=== PATIENT | female | born 1930 | race Hispanic/Latino ===

== ENCOUNTER 2017-08-18 13:57 | Inpatient (IN) | payer MEDICARE ==
[~2017-08-18] VITALS: Ht 152.4 cm; Wt 66.3 kg
--- NOTE | 2017-08-18 16:28 | Diagnostic Imaging Report ---
PROCEDURE:X-RAY CHEST, ONE VIEW COMPARISON:None. INDICATIONS:INFECTED DIALYSIS CATHETER FINDINGS: The heart is enlarged. Aorta is ectatic with calcifications of the aortic arch. Central pulmonary vasculature is prominent. The lungs are diffusely hyperinflated. There is no evidence of mass or infiltrate. There is blunting of the costophrenic angles. No pneumothorax. There are 2 stents in the right axilla and 2 stents in the left upper arm. No focal osseous lesions. CONCLUSION: Cardiomegaly and mild pulmonary vascular congestion. This may be chronic. Blunting of the lateral costophrenic angles is suggestive of pleural effusions. No infiltrates. Diffuse pulmonary hyperinflation suggestive of small airways disease. Dictated by: Jones Rodarte M.D. on 08/18/2017 at 16:29 Electronically approved by: Jones Rodarte M.D. on 08/18/2017 at 16:29
[2017-08-18 18:13] LABS: BASOPHILS % 0.5 % (0.0-1.0); EOSINOPHILS # (AUTO) 0.1 (0.0-0.4); EOSINOPHILS % 1.7 % (0.0-6.0); HEMATOCRIT 35.9 % (34.2-44.1); HEMOGLOBIN 11.9 g/dL (12.0-16.0); LYMPHOCYTES # (AUTO) 0.8 (1.0-3.2); LYMPHOCYTES % 13.8 % (18.0-39.1); MEAN CORPUSCULAR HEMOGLOBIN 33.5 pg (28-32); MEAN CORPUSCULAR HGB CONC 33.1 g/dL (31-35); MEAN CORPUSCULAR VOLUME 101.1 fL (81-99); MONOCYTES # (AUTO) 0.6 (0.2-0.8); MONOCYTES % 9.5 % (4.4-11.3); NEUTROPHILS # (AUTO) 4.4 (2.1-6.9); NEUTROPHILS % 74.2 % (38.7-80.0); PLATELET COUNT 188 x10e3/uL (140-360); RED BLOOD COUNT 3.55 x10e6/uL (3.6-5.1); RED CELL DISTRIBUTION WIDTH 14.4 % (11.7-14.4)
[2017-08-18 18:57] LABS: INR 1.18; PROTHROMBIN TIME 14.1 seconds (11.9-14.5)
[2017-08-18 19:09] LABS: ALBUMIN/GLOBULIN RATIO 1.1 (0.8-2.0); ANION GAP 20.6 mmol/L (8-16); CALCIUM 10.7 mg/dL (8.4-10.2); CREATININE, SERUM 7.49 mg/dL (0.57-1.11); POTASSIUM 4.6 mmol/L (3.5-5.1)
[2017-08-18 19:16] LABS: CREATINE KINASE MB 1.6 ng/mL (0-5.0)
[2017-08-18] MEDS ORDERED: RENVELA0.8 GM PO (19:56)
[2017-08-18] MEDS ORDERED: ZOLOFT50 MG PO (19:56)
[2017-08-18] MEDS ORDERED: GERI-TUSSI100 MG/5 M PO (19:56)
[2017-08-18] MEDS ORDERED: DULCOLAX10 MG PO (19:56)
[2017-08-18] MEDS ORDERED: CARVEDILOL3.125 MG PO (19:56)
[2017-08-18] MEDS ORDERED: PRAVASTATIN SOD20 MG PO (19:56)
[2017-08-18] MEDS ORDERED: IBUPROFEN400 MG PO (19:56)
[2017-08-18] MEDS ORDERED: HYDRALAZINE HCL25 MG PO (19:56)
[2017-08-18] MEDS ORDERED: ASPIR 8181 MG PO (19:56)
[2017-08-18] MEDS ORDERED: RENA-VITE TABL0.8 MG PO (19:56)
[2017-08-18] MEDS ORDERED: PLAVIX75 MG PO (19:56)
[2017-08-18] MEDS: PIPERACILLIN/TAZO 2.25 GM 50 ML IV SCH (21:10)
[2017-08-18] MEDS ORDERED: SODIUM CHLORIDE FLUSH 10 ML SYR INJ PRN (21:15)
[2017-08-18] MEDS ORDERED: VANCOMYCIN 1GM/NS 250 ML 250 ML IV ONE (21:15)
[2017-08-18] MEDS ORDERED: ONDANSETRON HCL INJ 2 MG/ML VIAL IV PRN (21:15)
--- OUTSIDE RECORDS SUMMARY | 2017-08-18 21:31 | XMS REPORT ---
Author [facility] Address Unknown Phone Unavailable Care Team Providers Care Fuel Technician Name Role Phone QUITA LONGORIA Unavailable Unavailable Problems This patient has no known problems. Allergies, Adverse Reactions, Alerts This patient has no known allergies or adverse reactions. Medications This patient has no known medications. Results Test Description Test Time Test Comments Text Results Atomic Results Result Comments CHEST SINGLE (NOT PORTABLE) [place] [address] Patient Name: SETH RUSH MR #: [id number] : 1930 Age/Sex: 87/F Req #: [id number] Adm Physician: Ordered by: SISSY PLEITEZ WIRE DRAWING MACHINE OPERATOR Report #: [id number] Location: ER Room/Bed: Procedure: [id number] DX/CHEST SINGLE (NOT PORTABLE) Exam Date: 08/18/17 Exam Time: 1610 REPORT STATUS: Signed PROCEDURE: X-RAY CHEST, ONE VIEW COMPARISON: None. INDICATIONS: INFECTED DIALYSIS CATHETER FINDINGS: The heart is enlarged. Aorta is ectatic with calcifications of the aortic arch. Central pulmonary vasculature is prominent. The lungs are diffusely hyperinflated. There is no evidence of mass or infiltrate. There is blunting of the costophrenic angles. No pneumothorax. There are 2 stents in the right axilla and 2 stents in the left upper arm. No focal osseous lesions. CONCLUSION: Cardiomegaly and mild pulmonary vascular congestion. This may be chronic. Blunting of the lateral costophrenic angles is suggestive of pleural effusions. No infiltrates. Diffuse pulmonary hyperinflation suggestive of small airways disease. Dictated by: Itz Rodarte M.D. on 2017 at 16:29 Electronically approved by: Itz Rodarte M.D. on 2017 at 16:29 Dictated By: ITZ RODARTE MD [id number] Transcribed By : OMEGA on 08/18/17 1623 COPY TO: SISSY PLEITEZ NP
[2017-08-18 22:29] VITALS: BP 183/75
[2017-08-18] MEDS ORDERED: SODIUM CHLORIDE 0.9% 250ML 250 ML ONE (22:32)
[2017-08-18] MEDS: HYDRALAZINE HCL 20 MG/ML VIAL IV PRN (22:44)
[2017-08-18 23:54] VITALS: BP 183/88
[2017-08-19] VITALS (7 sets, daily range): BP systolic 119–177; BP diastolic 54–94
[2017-08-19] MEDS: HYDRALAZINE HCL 20 MG/ML VIAL IV PRN (04:41)
[2017-08-19 06:21] LABS: BASOPHILS % 0.8 % (0.0-1.0); EOSINOPHILS # (AUTO) 0.1 (0.0-0.4); EOSINOPHILS % 1.7 % (0.0-6.0); HEMATOCRIT 34.3 % (34.2-44.1); HEMOGLOBIN 11.1 g/dL (12.0-16.0); LYMPHOCYTES # (AUTO) 0.9 (1.0-3.2); LYMPHOCYTES % 17.9 % (18.0-39.1); MEAN CORPUSCULAR HEMOGLOBIN 33.3 pg (28-32); MEAN CORPUSCULAR HGB CONC 32.4 g/dL (31-35); MONOCYTES # (AUTO) 0.5 (0.2-0.8); MONOCYTES % 11.2 % (4.4-11.3); NEUTROPHILS # (AUTO) 3.3 (2.1-6.9); NEUTROPHILS % 68.2 % (38.7-80.0); PLATELET COUNT 132 x10e3/uL (140-360); RED BLOOD COUNT 3.33 x10e6/uL (3.6-5.1); RED CELL DISTRIBUTION WIDTH 13.6 % (11.7-14.4)
[2017-08-19 06:42] LABS: ALBUMIN 3.5 g/dL (3.5-5.0); ALBUMIN/GLOBULIN RATIO 1.1 (0.8-2.0); ANION GAP 20.4 mmol/L (8-16); CALCIUM 10.4 mg/dL (8.4-10.2); CREATININE, SERUM 7.95 mg/dL (0.57-1.11); POTASSIUM 5.4 mmol/L (3.5-5.1)
--- NOTE | 2017-08-19 07:43 | History and Physical ---
PRIMARY CARE PHYSICIAN: Unknown CHIEF COMPLAINT: Infected AV fistula. HISTORY OF PRESENT ILLNESS: This is an 87-year-old woman with a history of end-stage renal disease, on hemodialysis, who was sent to the hospital from [facility] yesterday for infected AV fistula. The patient is a poor historian, and unable to provide much history. She denies any chest pain or shortness of breath. White blood cell count here was 5.89. She has been afebrile. PAST MEDICAL HISTORY: Hypertension, end-stage renal disease, on hemodialysis, small-bowel obstruction, status post colostomy placement, constipation, hypertension, anxiety/depression, hyperlipidemia. PAST SURGICAL HISTORY: Colostomy placement, left arm AV fistula. ALLERGIES: PER ELECTRONIC MEDICAL RECORD. FAMILY HISTORY/SOCIAL HISTORY: The patient is a resident at [facility]. No alcohol. Remote history of cigarettes. MEDICATIONS: Per electronic medical records. REVIEW OF SYSTEMS: Denies any dizziness or chest pain. PHYSICAL EXAMINATION VITAL SIGNS: Have been reviewed. GENERAL: A tired-appearing woman resting in bed. HEENT: Anicteric. Pupils respond to light. No oral lesions. CARDIOVASCULAR: Normal S1 and S2. LUNGS: She has moderate breath sounds. ABDOMEN: Soft, nontender and nondistended. She has a left-sided colostomy bag in place with some formed stool. EXTREMITIES: No edema or calf tenderness. She has the left arm with bruit audible. SKIN: Dry. PSYCHIATRIC: Normal affect. NEUROLOGICAL: Alert and oriented times 2. She moves all extremities. LABS: Reviewed. MEDICATIONS: Reviewed. ASSESSMENT AND PLAN: This is an 87-year-old woman with: 1. Presumed infected arteriovenous fistula: We have her on broad-spectrum antibiotics consisting of vancomycin and Zosyn. Blood cultures have been obtained. 2. End-stage renal disease, on hemodialysis: Defer to nephrology. 3. Hypertension: Restart home medications. 4. Anxiety/depression: Restart medication regimen. 5. Hyperlipidemia: Continue statin. 6. Overweight state: Body mass index is 28.5. Obtain lipid panel. 7. Prophylaxis: Will use sequential compression devices and Pepcid. 8. Disposition: Temporary hemodialysis catheter to be placed today. Continue intravenous antibiotics. Infectious disease to assist in management. Job#: [id number] ME
[2017-08-19] MEDS ORDERED: SODIUM CHLORIDE 0.9% 1000ML 1,000 ML ONE (08:19)
[2017-08-19] MEDS ORDERED: IOPAMIDOL 300MG/ML 50ML INFUS..BTL IV ONE (08:19)
[2017-08-19] MEDS ORDERED: LIDOCAINE HCL 2% LOCAL 20 ML VIAL ONE (08:19)
[2017-08-19] MEDS ORDERED: HYDRALAZINE HCL 25 MG TAB PO SCH (09:00)
[2017-08-19] MEDS ORDERED: HEPARIN SOD (PORCINE) 1000 UNIT/ML 30ML ONE (09:12)
[2017-08-19] MEDS ORDERED: SODIUM CHLORIDE 0.9% 250ML 250 ML ONE (10:18)
--- NOTE | 2017-08-19 10:18 | Diagnostic Imaging Report ---
Non-tunneled Dialysis Catheter Placement 08/19/2017 Pre-Procedure Diagnosis: End-Stage Renal Disease; suspected left AV fistula infection. Post-procedure Diagnosis:End-Stage Renal Disease; suspected left AV fistula infection. Right internal jugular occlusion. Battalion Fire Chief: Noelle Banegas Window Unit Air Conditioning Mechanic: None Sedation: None. Heart rate and oxygen saturation were monitored in real-time. Blood pressure was measured in 5 minute increments. 1% lidocaine was used for local anesthesia. Radiation Dose: 22.1 cGycm2 (Dose Area Product) Fluoroscopy time: 0.4 minutes Estimate blood loss: <5 mL Blood administered: None Complications: None Implants/Grafts: 13 Brazilian 15 cm 3 lumen jugular fluoroscopy suite. A timeout was performed, followed by preliminary ultrasound of the right internal jugular vein (see findings below). The right neck and chest were prepped and draped in standard fashion. Using real-time ultrasound guidance a 21 gauge vascular needle was used to access a collateral vein draining adjacent to the normal right internal jugular vein drainage. An image could not be stored in the electronic medical record given device limitations.. A wire was advanced and the needle exchanged for a non-tunneled dialysis catheter using standard Salinger technique. At the end of the procedure the catheter was flushed, secured to the skin and a sterile dressing applied. The patient tolerated the procedure well and without immediate complication. Findings: Occluded right internal jugular vein. Left axillary vein stent. Impression: 1. Successful placement of a non-tunneled dialysis catheter into a right neck collateral vein using ultrasound and fluoroscopic guidance. 2. 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 3. Left-sided access was avoided given left AV fistula conduit. This report was generated with voice-recognition technology. Errors in 3rd grade teacher can occur. Please interpret accordingly and contact a radiologist if there are any questions regarding the report. Signed by: Dr. Lalo Banegas M.D. on 08/19/2017 10:15 AM
[2017-08-19] MEDS: ASPIRIN 81 MG CHEW TAB PO SCH (10:31)
[2017-08-19] MEDS: CARVEDILOL 3.125 MG TAB PO SCH ×2 (10:31→17:00)
[2017-08-19] MEDS: FAMOTIDINE 20 MG TAB PO SCH ×2 (10:31→17:52)
[2017-08-19] MEDS: HYDRALAZINE HCL 100 MG TABLET PO SCH ×3 (10:31→21:38)
[2017-08-19] MEDS: PIPERACILLIN/TAZO 2.25 GM 50 ML IV SCH ×2 (10:31→21:38)
[2017-08-19] MEDS: SERTRALINE HCL 50 MG TAB PO SCH (10:31)
--- NOTE | 2017-08-19 13:12 | Consultation ---
DATE OF CONSULTATION: August 19, 2017 INFECTIOUS DISEASE CONSULTATION ATTENDING PHYSICIAN: Dr. Reece Toure REASON FOR CONSULTATION: Infected AV fistula site. Thank you, Dr. Toure, for asking me to see this patient. HISTORY OF PRESENT ILLNESS: The patient is an 87-year-old woman referred for an infected AV fistula. She is unable to give a detailed history due to dementia. The chart review showed that she was sent to the emergency department from a skilled nursing with hemodialysis access site infection. The patient's district manager primary care sales at the [facility] hemodialysis center had directed that the patient be sent to the emergency department. There was no fever or chills. The patient denies pain at the AV fistula site. At triage, she was noted to have a temperature of 98.3 degrees Fahrenheit, pulse 59, respiratory rate 14, blood pressure 190/84. Laboratory tests showed white blood cell count of 5890 with 74.2% neutrophils. The patient was evaluated by the interventional radiology services and successfully underwent temporary hemodialysis catheter. PAST MEDICAL HISTORY: Hypertension, hyperlipidemia, NSTEMI, end-stage renal disease, dementia, anxiety and depression. PAST SURGICAL HISTORY: Laparotomy with colostomy placement for (?)bowel obstruction, AV fistula creation. ALLERGIES: NO KNOWN DRUG ALLERGIES. MEDICATIONS: See MAR. The current antibiotics are vancomycin 1 g IV piggyback post hemodialysis and Zosyn 2.25 g IV piggyback q.12 h. IMMUNIZATIONS: She received influenza vaccine on May 20, 2017, and pneumococcal vaccine on October 12, 2016. FAMILY HISTORY: Noncontributory. SOCIAL HISTORY: No alcohol or tobacco use. REVIEW OF SYSTEMS: Unable to obtain. PHYSICAL EXAMINATION GENERAL: In no acute distress and does not appear toxic. VITAL SIGNS: T-max 98.9, pulse 62, respiratory rate 18, blood pressure 148/56, weight 146 pounds. HEENT: Normocephalic. There is no icterus or injection of conjunctivae. There is no ear or nasal discharge. Moist oral mucosa. No pharyngeal erythema or exudate. NECK: Supple. No lymphadenopathy. LUNGS: Good air entry bilaterally. HEART: Normal S1 and S2. Regular. ABDOMEN: Soft and nontender. EXTREMITIES: There is no edema, clubbing or cyanosis. The left arm AV fistula site is with black scab at the puncture site. There is mild erythema of the site, but there is no tenderness. SKIN: As per extremities. DIRECTOR PRINT: Awake and alert but with moderate memory loss. LABORATORY AND DIAGNOSTICS: WBC 4810, hemoglobin 11.1, platelets 132,000, neutrophils 68.2, lymphocytes 17.9, monos 11.2, eosinophils 1.7, basophils 0.8. AST 27, ALT 21, alk phos 92, total bilirubin 0.8. Blood culture is pending. IMPRESSION 1. Probable cellulitis of the arteriovenous fistula site, present on admission. 2. End-stage renal disease. 3. Hypertension. 4. Hyperlipidemia. 5. Dementia. PLAN 1. Await blood culture result. 2. Stop Zoan. Job#: [id number] KAREN FABIAN
[2017-08-19] MEDS ORDERED: SODIUM CHLORIDE 0.9% 1000ML 2,000 ML ONE (14:39)
[2017-08-19] MEDS: VANCOMYCIN 1GM/NS 250 ML 250 ML IV SCH (17:52)
--- NOTE | 2017-08-19 18:12 | Consultation ---
DATE OF CONSULTATION: August 19, 2017 NEPHROLOGY CONSULTATION REASON FOR CONSULTATION: End-stage renal disease on hemodialysis. REASON FOR ADMISSION: Possible AV fistula line infection. HISTORY OF PRESENT ILLNESS: Ms. Ness is an 87-year-old lady who is my dialysis patient at [facility]. She has a history of end-stage renal disease on hemodialysis Wednesday, Wednesday, Wednesday. She has hypertension, anemia, metabolic bone disease, hyperlipidemia, small bowel obstruction, status post colostomy and chronic hyperkalemia who was admitted. She initially presented to the dialysis unit yesterday. However, she was noted to have erythema and pus draining out of the fistula, and, hence, was sent to the emergency room here. Here she was noted to have erythema on the fistula. IR has been consulted and placed a temporary non-tunneled dialysis catheter, which is currently being used for dialysis today. The patient denies any pain. She states she feels fine and she wants to go home. Denies any nausea, vomiting, shortness of breath. ID has been consulted and thinks that this could be superficial cellulitis. However, awaiting blood cultures and currently the patient is on Zosyn. PAST MEDICAL HISTORY: Hypertension, end-stage renal disease on hemodialysis on Wednesday, Wednesday, Wednesday, small bowel obstruction, status post colostomy, constipation, hypertension, anemia, metabolic bone disease, anxiety, depression, hyperlipidemia. PAST SURGICAL HISTORY: Colostomy placement and left AV fistula. ALLERGIES: PER ELECTRONIC MEDICAL RECORD. MEDICATIONS: Reviewed in electronic medical record. FAMILY HISTORY: Not pertinent to chief complaint. Lives in a long-term. SOCIAL HISTORY: No alcohol or drug use. Was a former smoker. REVIEW OF SYSTEMS: A 12-point review of systems was performed and pertinent positives as per HPI. PHYSICAL EXAMINATION VITAL SIGNS: Temperature 98.3, pulse rate 55 per minute, respiratory rate 18 per minute, blood pressure 119/54, pulse oximetry 96% on O2. GENERAL: Lying in bed and appears to be comfortable. HEENT: Normocephalic, atraumatic. Moist mucous membranes. RESPIRATORY: Decreased bilateral basilar breath sounds, has crackles scattered in the right lung base. CARDIOVASCULAR: Regular rate and rhythm. GASTROINTESTINAL: Abdomen is soft. Colostomy is present. GENITOURINARY: No Barcenas catheter present. MUSCULOSKELETAL: Has left upper AV fistula with erythema and a scab noted as well. Thrill and bruit present. Lower extremities with no edema appreciated. NEUROLOGIC: No asterixis appreciated. LABORATORY DATA: WBC count 4.8, hemoglobin 11.1, platelet count 132,000, INR 1.18. Chemistries: Sodium 140, potassium 5.4, chloride 102, bicarb 23, BUN 56, creatinine 7.95, calcium 10.4, was 10.7 on admission. AST 27, ALT 21. CK 28. BNP on admission 1535. Albumin 3.5. Microbiology: Blood culture x2 pending. IMAGING: Chest x-ray: Cardiomegaly and mild pulmonary vascular congestion. 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 IMPRESSION AND PLAN 1. End-stage renal disease on hemodialysis. Will plan for dialysis through non-tunneled temporary hemodialysis catheter at this time. Will await infectious disease clearance for using the fistula, currently on Zosyn. 2. Infected AV fistula, possible cellulitis, superficial. Await blood cultures on Zosyn and antibiotics per infectious disease. 3. Hypertension. Continue with current meds. 4. Metabolic bone disease. Start PhosLo with meals. 5. Anemia. Hemoglobin stable. 6. Hypercalcemia. Will monitor closely. 7. Will assess the colostomy with colostomy care. 8. Plan is discussed with RN. Job#: [id number]
--- NOTE | 2017-08-19 20:46 | Diagnostic Imaging Report ---
Pelvis CPT code: 73320 Indication: Right leg pain, fall several days ago Technique: AP view of the pelvis obtained Findings: The bones are diffusely demineralized. The majority of the right femoral head is absent. There is superior migration of the femoral neck in the acetabulum with resulting sclerosis and joint space narrowing. No acute fractures. Left femur is intact and normally situated. There are extensive calcifications of the arterial structures. No pelvic fractures. IMPRESSION: Complete erosion of the right femoral head with resulting degenerative changes of the hip. This could be the result of avascular necrosis. No acute fracture or dislocation. Signed by: Dr. Jones Rodarte MD on 08/19/2017 8:42 PM
--- NOTE | 2017-08-19 20:47 | Diagnostic Imaging Report ---
Femur right CPT code: 22422 Indication: Pain, fall Technique: AP and lateral views of right femur obtained Comparison: Pelvis x-rays obtained at the same time Findings: The right femoral head is absent. There is sclerosis and joint space narrowing of the femoral neck and adjacent acetabulum. The remainder of the femur is intact. There are mild degenerative changes of the knee. The patella is normally situated without joint effusion. Visualized portion of the proximal tibia and fibula are intact. Extensive calcifications throughout the vascular structures. IMPRESSION: 1. No acute fracture or dislocation. 2. Erosion or collapse of the right femoral head could be the result of avascular necrosis. Signed by: Dr. Jones Rodarte MD on 08/19/2017 8:44 PM
--- NOTE | 2017-08-19 20:50 | Diagnostic Imaging Report ---
Cervical Spine Two Views CPT code: 43496 Indication: Fall Technique: AP and lateral views of cervical spine obtained. Comparison: None Findings: Cervical vertebral bodies can be visualized to C7. There is anterolisthesis of C4 on C5 of approximately 3 mm. No prevertebral soft tissue swelling. Disc space narrowing and endplate osteophytosis most severe at C5-6. The facets and spinous processes are normally aligned. Alignment is maintained on the AP view. The lateral masses of C1 are symmetric. The dens is intact. The skull base is normal. Central venous catheter is located in the upper right chest. There is a vascular stent in the left axilla. IMPRESSION: No acute fracture or dislocation. Grade 1 anterolisthesis of C3 on C4 is likely degenerative. Signed by: Dr. Jones Rodarte MD on 08/19/2017 8:47 PM
[2017-08-19] MEDS ORDERED: NON-FORMULARY MEDICATION (Pravastatin Sodium 20 MG) PO SCH (21:00)
[2017-08-19] MEDS: CALCIUM ACETATE 667 MG GELCAP PO SCH (21:37)
[2017-08-19] MEDS: SIMVASTATIN 20 MG TAB PO SCH (21:38)
[2017-08-20] VITALS: BP 160/74
[2017-08-20] MEDS: HYDRALAZINE HCL 20 MG/ML VIAL IV PRN ×2 (00:26→05:18)
[2017-08-20 04:00] VITALS: BP 185/75
[2017-08-20 05:00] VITALS: BP 160/74
--- NOTE | 2017-08-20 06:37 | Progress Note ---
DATE: August 20, 2017 TIME: 6 a.m. OVERNIGHT: Feeling a little better. REVIEW OF SYSTEMS: Denies any dizziness. PHYSICAL EXAMINATION VITAL SIGNS: Reviewed. GENERAL: A tired-appearing woman resting in bed. HEENT: Anicteric. CARDIOVASCULAR: Normal S1 and S2. LUNGS: Moderate breath sounds. ABDOMEN: Soft, nontender and nondistended. She has a left-sided colostomy in place. EXTREMITIES: She has no edema or calf tenderness. She has a left arm bruit at the HD site. That site does not appear to be infectious. There is some skin changes. The site is nontender. SKIN: Dry. PSYCHIATRIC: Flat affect. NEUROLOGICAL: Alert, awake and appropriate. LABS: Reviewed. MEDICATIONS: Reviewed. ASSESSMENT: An 87-year-old woman with: 1. Presumed infected arteriovenous fistula. 2. End-stage renal disease, on hemodialysis. 3. Hypertension. 4. Anxiety/depression. 5. Hyperlipidemia. 6. Overweight state: Body mass index 28.6. 7. Right femoral head collapse/erosion, but no fracture. PLAN 1. Continue IV antibiotics. 2. Follow up cultures. 3. Temporary HD catheter has been placed in the right chest site. Possible dialysis today. 4. Rehydrate the patient for better blood pressure control. 5. Right femoral head collapse is seen on imaging with erosion, but no fracture. 6. Continue monitoring blood pressure. 7. The patient remains on IV vancomycin at dialysis and IV Zosyn. 8. Currently, blood pressure is elevated. Will adjust medications and treat as appropriate. Job#: [id number] LYUDMILA
[2017-08-20 07:28] LABS: ANION GAP 17.3 mmol/L (8-16); CALCIUM 9.5 mg/dL (8.4-10.2); CREATININE, SERUM 4.33 mg/dL (0.57-1.11); MAGNESIUM 1.8 MG/DL (1.3-2.1); PHOSPHORUS 3.5 MG/DL (2.3-4.7); POTASSIUM 4.3 mmol/L (3.5-5.1)
[2017-08-20] MEDS: CALCIUM ACETATE 667 MG GELCAP PO SCH ×3 (08:00→16:38)
[2017-08-20] MEDS: HYDRALAZINE HCL 100 MG TABLET PO SCH ×3 (09:00→20:44)
[2017-08-20] MEDS: CARVEDILOL 3.125 MG TAB PO SCH ×2 (09:00→16:38)
[2017-08-20] MEDS: ASPIRIN 81 MG CHEW TAB PO SCH (09:09)
[2017-08-20] MEDS: SERTRALINE HCL 50 MG TAB PO SCH (09:09)
[2017-08-20] MEDS: FAMOTIDINE 20 MG TAB PO SCH ×2 (09:09→16:38)
[2017-08-20] MEDS ORDERED: SODIUM CHLORIDE 0.9% 1000ML 1,000 ML ONE (09:13)
[2017-08-20 10:15] VITALS: BP 161/56
[2017-08-20] MEDS ORDERED: SODIUM CHLORIDE 0.9% 250ML 500 ML IV PRN (10:15)
[2017-08-20] MEDS ORDERED: HEPARIN SOD (PORCINE) 1000 UNIT/ML SDV IV PRN (10:15)
[2017-08-20] MEDS ORDERED: ALBUMIN HUMAN 12.5GM / 50ML IV PRN (10:15)
[2017-08-20] MEDS ORDERED: SODIUM CHLORIDE 0.9% 1000ML 2,000 ML IV PRN (10:15)
[2017-08-20] MEDS ORDERED: MANNITOL 25% 12.5GM/50 ML VIAL IV PRN (10:15)
[2017-08-20] MEDS: PIPERACILLIN/TAZO 2.25 GM 50 ML IV SCH ×2 (12:41→20:44)
[2017-08-20] MEDS: AMLODIPINE BESYLATE 5 MG TAB PO SCH (12:41)
[2017-08-20] MEDS: ACETAMINOPHEN 325 MG TAB PO PRN (16:38)
[2017-08-20 16:48] VITALS: BP 155/70
[2017-08-20 20:00] VITALS: BP 162/70
[2017-08-20] MEDS: SIMVASTATIN 20 MG TAB PO SCH (20:44)
[2017-08-20] MEDS: BALSAM PERU/CASTOR OIL 60 GM OINT...G. TP SCH (21:00)
[2017-08-21] VITALS: BP 159/86
[2017-08-21 02:17] VITALS: BP 155/70
[2017-08-21 04:00] VITALS: BP 187/72
[2017-08-21] MEDS: HYDRALAZINE HCL 20 MG/ML VIAL IV PRN (05:26)
[2017-08-21] MEDS: FAMOTIDINE 20 MG TAB PO SCH ×2 (08:15→17:06)
[2017-08-21] MEDS: PIPERACILLIN/TAZO 2.25 GM 50 ML IV SCH ×2 (08:16→21:10)
[2017-08-21] MEDS: HYDRALAZINE HCL 100 MG TABLET PO SCH ×3 (08:16→21:10)
[2017-08-21] MEDS: CARVEDILOL 3.125 MG TAB PO SCH ×2 (08:16→16:56)
[2017-08-21] MEDS: AMLODIPINE BESYLATE 5 MG TAB PO SCH ×2 (08:16→16:57)
[2017-08-21] MEDS: ASPIRIN 81 MG CHEW TAB PO SCH (08:16)
[2017-08-21] MEDS: CALCIUM ACETATE 667 MG GELCAP PO SCH ×3 (08:16→17:06)
[2017-08-21] MEDS: BALSAM PERU/CASTOR OIL 60 GM OINT...G. TP SCH ×2 (08:16→21:10)
[2017-08-21] MEDS: SERTRALINE HCL 50 MG TAB PO SCH (08:16)
[2017-08-21] MEDS: VANCOMYCIN 1GM/NS 250 ML 250 ML IV SCH (09:09)
--- NOTE | 2017-08-21 16:40 | Progress Note ---
DATE: August 21, 2017 TIME: 1445 MEDICINE PROGRESS NOTE SUBJECTIVE: No acute events overnight. REVIEW OF SYSTEMS: Patient denies any chest pain, shortness of breath, nausea, vomiting, or diarrhea. PHYSICAL EXAMINATION VITAL SIGNS: This a.m., T 96.7, P 56, respirations 20, blood pressure 187/72 with repeat reading at 8 a.m. of 154/64. Pulse oxygen on room air at 96%. GENERAL APPEARANCE: A tired-appearing woman resting supine with head of bed elevated 30 degrees in bed. HEENT: Normocephalic with oral mucosa moist and intact. CARDIOVASCULAR: S1 and S2 appreciated without clicks, murmurs, or rubs. LUNGS: Moderate breath sounds, clear to auscultation. ABDOMEN: Positive for left-sided colostomy. Abdomen is soft, nontender and nondistended. EXTREMITIES: She is without calf tenderness or clubbing. Left AV upper arm fistula with positive bruit and thrill. Not warm to touch. Not tender to touch. There is some dark red exudate noted at the site. SKIN: Otherwise dry. PSYCHIATRIC: Pleasant, normal affect. NEUROLOGICAL: Alert, oriented times 3 with appropriate answers to global questioning. LABS: Sodium 139, potassium improved at 4.3 this a.m., carbon dioxide 26, chloride 100, anion gap improved at 17.3, BUN improved to 23, creatinine improved to 4.33, and GFR has risen to 10. MEDICATIONS: Reviewed. Additional amlodipine added to list this day. ASSESSMENT AND PLAN: This is an 87-year-old woman with: 1. Presumed infected arteriovenous fistula. We will continue IV antibiotics and note that blood cultures are negative. 2. End-stage renal disease on hemodialysis. Patient with temporary HD catheter at the right chest wall. HD managed per nephrology. 3. Hypertension. Medication as above added this day. Will continue to monitor. 4. Anxiety and depression. Supportive care with SSRI Zoloft continued from home meds. 5. Hyperlipidemia. 6. Right femoral head collapse per imaging with erosion, no fracture. 7. Overweight state. BMI at 28.6. Will continue therapeutic diet as ordered. 8. Prophylaxis: Patient is receiving heparin p.r.n. to IV catheter, SCDs and Pepcid. 9. Disposition: Lab orders per nephrology. We will continue to monitor blood pressure with diuresis adjustment. Monitor elevated calcium and anemia. After discussion with nephrology, left upper arm AV fistula pending usage by nephrology upon clearance from infectious disease. Dictated by Tu Taylor NP. Job#: [id number]
[2017-08-21 20:00] VITALS: BP 137/60
[2017-08-21] MEDS: SIMVASTATIN 20 MG TAB PO SCH (21:10)
[2017-08-22] VITALS (7 sets, daily range): BP systolic 134–188; BP diastolic 48–77
[2017-08-22] MEDS: HYDRALAZINE HCL 20 MG/ML VIAL IV PRN (06:29)
[2017-08-22] MEDS: ASPIRIN 81 MG CHEW TAB PO SCH (09:25)
[2017-08-22] MEDS: CALCIUM ACETATE 667 MG GELCAP PO SCH ×3 (09:25→17:54)
[2017-08-22] MEDS: AMLODIPINE BESYLATE 5 MG TAB PO SCH ×2 (09:25→17:54)
[2017-08-22] MEDS: PIPERACILLIN/TAZO 2.25 GM 50 ML IV SCH ×2 (09:25→21:30)
[2017-08-22] MEDS: HYDRALAZINE HCL 100 MG TABLET PO SCH ×3 (09:25→21:30)
[2017-08-22] MEDS: BALSAM PERU/CASTOR OIL 60 GM OINT...G. TP SCH ×2 (09:25→21:30)
[2017-08-22] MEDS: FAMOTIDINE 20 MG TAB PO SCH ×2 (09:25→17:54)
[2017-08-22] MEDS: SERTRALINE HCL 50 MG TAB PO SCH (09:25)
[2017-08-22] MEDS: CARVEDILOL 3.125 MG TAB PO SCH ×2 (09:25→17:54)
--- NOTE | 2017-08-22 13:20 | Progress Note ---
DATE: August 22, 2017 TIME: 12:00 noon. MEDICINE PROGRESS NOTE SUBJECTIVE: No acute events overnight. REVIEW OF SYSTEMS: The patient denies any chest pain, shortness of breath, nausea, vomiting, diarrhea or dizziness. OBJECTIVE VITAL SIGNS: Temperature the a.m. 96.8 orally, pulse 66, respirations 18. Blood pressure in the last 24 hours ranging from systolic of 107 to 208. Last blood pressure this a.m. 153/67. O2 sats on room air 98%. GENERAL: A tired-appearing woman resting in bed. HEENT: Normocephalic with oral mucosa moist and intact. CARDIOVASCULAR: S1 and S2 appreciated with regular rate and rhythm. No extra cardiac sounds noted. LUNGS: Moderate breath sounds in all nair. Clear. ABDOMEN: Soft and nontender and not distended. Positive for left-sided colostomy. EXTREMITIES: No calf tenderness or clubbing. No edema. Left AV shunt in the upper arm with positive bruit and thrill. Nontender, non-warm. SKIN: Dry. PSYCHIATRIC: Pleasant with normal affect. NEUROLOGIC: Alert and oriented x3. LABORATORY DATA: Reviewed. MEDICATIONS: Reviewed. ASSESSMENT AND PLAN: This is an 87-year-old female with: 1. Presumed infected AV fistula. Per infectious disease notes, recommend completing regimen of Zosyn prior to use. Today is day 5 of IV Zosyn. 2. End-stage renal disease on hemodialysis. The patient with temporary hemodialysis at the right chest wall. Manage per nephrology. 3. Hypertension. Values reviewed. Continue to monitor with additional medication added on 08/21. 4. Anxiety/depression. Selective serotonin reuptake inhibitor, Zoloft. 5. Hyperlipidemia. 6. Right femoral head collapse per imaging with erosion. No fracture. 7. Overweight state. BMI 28.6. Diet as ordered. 8. Prophylaxis. SCDs and Pepcid. DISPOSITION: Lab orders per nephrology tomorrow a.m. Defer to nephrology for blood pressure adjustment per notes. Infectious disease recommendations noted as above. Dictated by: Tu Taylor NP Job#: [id number] GH
[2017-08-22] MEDS: SIMVASTATIN 20 MG TAB PO SCH (21:30)
[2017-08-23] VITALS (7 sets, daily range): BP systolic 141–167; BP diastolic 54–79
[2017-08-23] MEDS ORDERED: HYDRALAZINE HC100 MG PO (07:17)
[2017-08-23] MEDS ORDERED: FAMOTIDINE20 MG PO (07:17)
[2017-08-23 07:23] LABS: BASOPHILS % 0.6 % (0.0-1.0); EOSINOPHILS # (AUTO) 0.1 (0.0-0.4); EOSINOPHILS % 2.2 % (0.0-6.0); HEMATOCRIT 33.8 % (34.2-44.1); HEMOGLOBIN 11.3 g/dL (12.0-16.0); LYMPHOCYTES # (AUTO) 0.9 (1.0-3.2); LYMPHOCYTES % 17.8 % (18.0-39.1); MEAN CORPUSCULAR HEMOGLOBIN 33.3 pg (28-32); MEAN CORPUSCULAR HGB CONC 33.4 g/dL (31-35); MEAN CORPUSCULAR VOLUME 99.7 fL (81-99); MONOCYTES # (AUTO) 0.8 (0.2-0.8); MONOCYTES % 15.3 % (4.4-11.3); NEUTROPHILS # (AUTO) 3.1 (2.1-6.9); NEUTROPHILS % 63.7 % (38.7-80.0); PLATELET COUNT 170 x10e3/uL (140-360); RED BLOOD COUNT 3.39 x10e6/uL (3.6-5.1); RED CELL DISTRIBUTION WIDTH 13.7 % (11.7-14.4)
[2017-08-23 07:48] LABS: CALCIUM 9.7 mg/dL (8.4-10.2); CREATININE, SERUM 7.38 mg/dL (0.57-1.11); PHOSPHORUS 7.3 MG/DL (2.3-4.7)
[2017-08-23] MEDS: HYDRALAZINE HCL 100 MG TABLET PO SCH ×3 (09:00→20:55)
[2017-08-23] MEDS: AMLODIPINE BESYLATE 5 MG TAB PO SCH ×2 (09:00→16:55)
[2017-08-23] MEDS: CARVEDILOL 3.125 MG TAB PO SCH ×2 (09:00→16:55)
[2017-08-23] MEDS: ASPIRIN 81 MG CHEW TAB PO SCH (09:12)
[2017-08-23] MEDS: FAMOTIDINE 20 MG TAB PO SCH ×2 (09:13→16:54)
[2017-08-23] MEDS: BALSAM PERU/CASTOR OIL 60 GM OINT...G. TP SCH ×2 (09:13→20:55)
[2017-08-23] MEDS: SERTRALINE HCL 50 MG TAB PO SCH (09:13)
[2017-08-23] MEDS: CALCIUM ACETATE 667 MG GELCAP PO SCH ×3 (09:13→16:55)
[2017-08-23] MEDS ORDERED: MINOCYCLINE HCL50 MG PO (09:55)
[2017-08-23] MEDS ORDERED: LEVAQUIN500 MG PO (09:55)
[2017-08-23] MEDS: ACETAMINOPHEN 325 MG TAB PO PRN (11:42)
[2017-08-23] MEDS: PIPERACILLIN/TAZO 2.25 GM 50 ML IV SCH ×2 (13:50→20:55)
--- NOTE | 2017-08-23 16:20 | Discharge Summary ---
PRINCIPAL DIAGNOSES 1. Infected arteriovenous fistula site. 2. End-stage renal disease on hemodialysis. 3. Hypertension. 4. Anxiety/depression. 5. Overweight state. Body mass index 28.6. 6. Right femoral head collapse/erosion, but no fracture. SECONDARY DIAGNOSIS: End-stage renal disease on hemodialysis. CHIEF COMPLAINT: Redness around the hemodialysis access site. HISTORY OF PRESENT ILLNESS: This is an 87-year-old woman developing presumed infection at the AV fistula site. Please refer to the H and P for further details. HOSPITAL COURSE: The patient received IV antibiotics for infection at the AV fistula site. Continued to receive dialysis after a temporary catheter was placed in the right chest. She had hypertension and anxiety disorder treated with medication regimen. She had a right femoral head collapse/erosion, but no fracture. Will need continued physical therapy at home. The patient has received IV Zosyn and IV vancomycin. Will defer to infectious disease regarding choice of antibiotics for home use. She is currently appropriate for discharge with followup. DISCHARGE MEDICATIONS: Per electronic medical record. FOLLOWUP: With primary care doctor in 1 week. Also follow up with apns as directed. CONDITION ON DISCHARGE: Stable and improving. DISCHARGE LOCATION: Home with physical therapy. MARTINE MONTEZ MD Job#: [id number]
[2017-08-23] MEDS: SIMVASTATIN 20 MG TAB PO SCH (20:55)
[2017-08-24] VITALS (7 sets, daily range): BP systolic 125–185; BP diastolic 48–86
[2017-08-24] MEDS: FAMOTIDINE 20 MG TAB PO SCH ×2 (07:30→18:38)
[2017-08-24] MEDS: CALCIUM ACETATE 667 MG GELCAP PO SCH ×3 (08:00→18:38)
[2017-08-24] MEDS: AMLODIPINE BESYLATE 5 MG TAB PO SCH ×2 (09:00→18:38)
[2017-08-24] MEDS: CARVEDILOL 3.125 MG TAB PO SCH ×2 (09:00→18:38)
[2017-08-24] MEDS: HYDRALAZINE HCL 100 MG TABLET PO SCH ×3 (09:00→21:55)
[2017-08-24] MEDS: SERTRALINE HCL 50 MG TAB PO SCH (09:00)
[2017-08-24] MEDS: ASPIRIN 81 MG CHEW TAB PO SCH (09:00)
[2017-08-24] MEDS: PIPERACILLIN/TAZO 2.25 GM 50 ML IV SCH ×2 (10:00→21:55)
[2017-08-24] MEDS ORDERED: SODIUM CHLORIDE 0.9% ONE (11:40)
[2017-08-24] MEDS ORDERED: LIDOCAINE HCL 2% LOCAL 20 ML VIAL ONE (11:40)
[2017-08-24] MEDS ORDERED: FENTANYL CITRATE/PF 100MCG/2 ML INJ ONE (11:49)
[2017-08-24] MEDS ORDERED: MIDAZOLAM HCL 2 MG/2 ML VIAL ONE (11:50)
[2017-08-24] MEDS: SILVER ANTIMICROBIAL WOUND GEL 45ML TOP SCH (18:32)
[2017-08-24] MEDS: BALSAM PERU/CASTOR OIL 60 GM OINT...G. TP SCH ×2 (18:32→22:39)
[2017-08-24] MEDS ORDERED: FUROSEMIDE INJ 10 MG/ML 2 ML VIAL IV PRN (19:15)
[2017-08-24] MEDS ORDERED: SODIUM CHLORIDE 0.9% 250ML 250 ML IV ONE (19:15)
[2017-08-24 20:29] LABS: HEMOGLOBIN 11.6 g/dL (12.0-16.0)
[2017-08-24] MEDS: SIMVASTATIN 20 MG TAB PO SCH (21:55)
[2017-08-25] VITALS: BP 175/72
[2017-08-25] MEDS: ACETAMINOPHEN 325 MG TAB PO PRN (01:48)
[2017-08-25 04:00] VITALS: BP 153/77
[2017-08-25 06:59] LABS: BASOPHILS % 0.8 % (0.0-1.0); EOSINOPHILS # (AUTO) 0.1 (0.0-0.4); EOSINOPHILS % 1.2 % (0.0-6.0); HEMATOCRIT 32.5 % (34.2-44.1); HEMOGLOBIN 10.8 g/dL (12.0-16.0); LYMPHOCYTES % 19.4 % (18.0-39.1); MEAN CORPUSCULAR HEMOGLOBIN 32.9 pg (28-32); MEAN CORPUSCULAR HGB CONC 33.2 g/dL (31-35); MEAN CORPUSCULAR VOLUME 99.1 fL (81-99); MONOCYTES # (AUTO) 0.9 (0.2-0.8); MONOCYTES % 18.6 % (4.4-11.3); NEUTROPHILS % 59.6 % (38.7-80.0); PLATELET COUNT 143 x10e3/uL (140-360); RED BLOOD COUNT 3.28 x10e6/uL (3.6-5.1); RED CELL DISTRIBUTION WIDTH 13.6 % (11.7-14.4)
[2017-08-25 07:32] LABS: CALCIUM 10.3 mg/dL (8.4-10.2); CREATININE, SERUM 6.33 mg/dL (0.57-1.11)
[2017-08-25 07:41] VITALS: BP 175/67
[2017-08-25 07:45] VITALS: BP 175/67
[2017-08-25] MEDS ORDERED: ISOSORBIDE DINI20 MG PO (07:46)
[2017-08-25 07:47] LABS: ANION GAP 20.9 mmol/L (8-16); POTASSIUM 5.9 mmol/L (3.5-5.1)
[2017-08-25] MEDS: CARVEDILOL 3.125 MG TAB PO SCH (08:00)
[2017-08-25] MEDS: FAMOTIDINE 20 MG TAB PO SCH (08:00)
[2017-08-25] MEDS: SERTRALINE HCL 50 MG TAB PO SCH (08:00)
[2017-08-25] MEDS: ASPIRIN 81 MG CHEW TAB PO SCH (08:00)
[2017-08-25] MEDS: CALCIUM ACETATE 667 MG GELCAP PO SCH ×2 (08:00→12:00)
--- NOTE | 2017-08-25 08:54 | Progress Note ---
DATE: August 24, 2017 TIME: 7:30 a.m. OVERNIGHT: The patient kept in the hospital due to attempt by radiology to place a tunneled catheter. REVIEW OF SYSTEMS: Denies any chest pain. PHYSICAL EXAMINATION VITAL SIGNS: Reviewed. GENERAL: A tired-appearing woman resting in bed. HEENT: Anicteric. CARDIOVASCULAR: Normal S1 and S2. LUNGS: Moderate breath sounds. ABDOMEN: Soft, nontender and nondistended. EXTREMITIES: Right chest has an HD access catheter. Left arm with bruit at HD site with no real erythema at that site at this time. SKIN: Dry. PSYCHIATRIC: Flat affect. NEUROLOGICAL: Alert and awake. LABS: Reviewed. MEDICATIONS: Reviewed. ASSESSMENT: An 87-year-old woman with: 1. Infected left arm fistula site. 2. End-stage renal disease, on hemodialysis. 3. Hypertension. 4. Anxiety/depression. 5. Hyperlipidemia. 6. Overweight state. 7. Body mass index 28.6. 8. Right femoral head collapse/erosion, but no fracture. PLAN 1. Tunneled catheter placement pending. 2. Continue antibiotics. Follow up cultures. 3. Continue dialysis per temporary catheter. 4. All cultures remain negative to date. 5. Discharge planning. Job#: [id number] LYUDMILA
[2017-08-25] MEDS: ISOSORBIDE DINITRATE 20 MG TAB PO SCH ×2 (09:00→14:35)
[2017-08-25] MEDS: HYDRALAZINE HCL 100 MG TABLET PO SCH ×2 (09:00→14:35)
[2017-08-25] MEDS: AMLODIPINE BESYLATE 5 MG TAB PO SCH ×2 (09:00→14:35)
[2017-08-25] MEDS: PIPERACILLIN/TAZO 2.25 GM 50 ML IV SCH (09:15)
--- NOTE | 2017-08-25 09:39 | Discharge Summary ---
ADDENDUM The patient remained in the hospital for the temporary catheter to be tunneled for dialysis. Once tunneled, the patient can be discharged home with antibiotics. Antibiotics per infectious disease. The patient will be discharged with IV antibiotics and oral antibiotics. Please refer to my discharge summary for further details dated August 23, 2017. MARTINE MONTEZ MD Job#: [id number] RI
[2017-08-25] MEDS ORDERED: HEPARIN SOD (PORCINE) 1000 UNIT/ML SDV IV PRN (11:30)
[2017-08-25 12:02] VITALS: BP 126/50
[2017-08-25] MEDS: BALSAM PERU/CASTOR OIL 60 GM OINT...G. TP SCH (14:30)
[2017-08-25] MEDS: SILVER ANTIMICROBIAL WOUND GEL 45ML TOP SCH (14:30)
--- NOTE | 2017-08-30 13:15 | Diagnostic Imaging Report ---
Procedure: Tunneled hemodialysis catheter placement. Medications: None. The patient's vital signs, including pulse oximetry, were continuously monitored by the interventional radiology nurse. Fluoroscopy time: 0.4 minutes. Dose area product: 12.4 cGycm2 Contrast used: None Estimated blood loss: Minimal. Complications: No immediate. Procedure in detail: Informed consent for the procedure was obtained from the patient after discussion of risks and benefits. The right neck and upper chest was prepped and draped in the standard sterile fashion after the patient was placed in the supine position on the fluoroscopic table. 1% lidocaine was administered into the skin and subcutaneous tissues of the right lower neck for local anesthesia. A 0.035 inch Amplatz superstiff wire was advanced into the inferior vena cava under fluoroscopic guidance through the existing temporary catheter. 1% lidocaine was epinephrine was used to anesthetize a subcutaneous tract extending from the planned catheter exit site to the venotomy at the right lower neck. A stab incision was made on the right upper chest. Subsequently, the catheter was tunneled from the exit site of the right upper chest to the venotomy at the right lower neck. The retention cuff of the catheter was advanced well into the subcutaneous tunnel. Finally, a 16.5-Haitian peel-away sheath was advanced over the wire under fluoroscopic guidance. The wire and inner dilator of the sheath were removed and the tunneled HD catheter was advanced through the peel-away sheath, which was then broken and removed. The catheter tip was positioned in the upper right atrium. Each catheter lumen showed good bidirectional flow. Each lumen was then packed with 1,000 units of heparin. The catheter was secured at the exit site on the right upper chest with monofilament nylon suture. A pursestring suture with Vicryl material was placed around the catheter at the entry site below the clavicle. The venotomy at the right lower neck was closed with tissue adhesive and interrupted Vicryl sutures. A sterile dressing was applied. The patient tolerated the procedure well without immediate complication. Impression: 1. Successful placement of a tunneled dual-lumen hemodialysis catheter (16-Haitian, 19-cm tip-cuff length Bard split tip HD catheter) by a right internal jugular approach. 2. The line is okay for immediate use. Signed by: Dr. Carlos Dela Cruz DO on 08/25/2017 12:32 PM
== END 2017-08-25 15:30 | DRG 314 ==
LOC: ER 14:08 → MED/SURG3 21:28
PROVIDERS: ADMIT Internal Medicine; ATTEND Internal Medicine
PROC: 02HV33Z Insertion of Infusion Device into Superior Vena Cava, Percutaneous Approach (ICD-10-PCS; principal; 2017-08-19)
PROC: 5A1D70Z Performance of Urinary Filtration, Intermittent, Less than 6 Hours Per Day (ICD-10-PCS; 2017-08-19)
PROC: 5A1D70Z Performance of Urinary Filtration, Intermittent, Less than 6 Hours Per Day (ICD-10-PCS; 2017-08-20)
PROC: 5A1D70Z Performance of Urinary Filtration, Intermittent, Less than 6 Hours Per Day (ICD-10-PCS; 2017-08-23)
PROC: 0JH63XZ Insertion of Tunneled Vascular Access Device into Chest Subcutaneous Tissue and Fascia, Percutaneous Approach (ICD-10-PCS; 2017-08-25)
PROC: 05HM33Z Insertion of Infusion Device into Right Internal Jugular Vein, Percutaneous Approach (ICD-10-PCS; 2017-08-25)
PROC: 5A1D70Z Performance of Urinary Filtration, Intermittent, Less than 6 Hours Per Day (ICD-10-PCS; 2017-08-25)
DX: T82.7XXA Infection and inflammatory reaction due to other cardiac and vascular devices, implants and grafts, initial encounter (principal); N18.6 End stage renal disease; I12.0 Hypertensive chronic kidney disease with stage 5 chronic kidney disease or end stage renal disease; E87.2 Acidosis; E83.52 Hypercalcemia; M87.9 Osteonecrosis, unspecified; D63.1 Anemia in chronic kidney disease; L76.21 Postprocedural hemorrhage of skin and subcutaneous tissue following a dermatologic procedure; F03.90 Unspecified dementia, unspecified severity, without behavioral disturbance, psychotic disturbance, mood disturbance, and anxiety; Z99.2 Dependence on renal dialysis; N18.9 Chronic kidney disease, unspecified; M89.8X9 Other specified disorders of bone, unspecified site; F41.9 Anxiety disorder, unspecified; F32.9 Major depressive disorder, single episode, unspecified; E66.9 Obesity, unspecified; Z68.28 Body mass index [BMI] 28.0-28.9, adult; Z93.3 Colostomy status
CPT/HCPCS: 36415; 36556; 36565; 71045; 72040; 72170; 74470; 77001; 80048; 80053; 82550; 82553; 83735; 83880; 84100; 84484; 85014; 85018; 85025; 85610; 85730; 86850; 86900; 86920; 87040; 87340; 90962; 93005; 99284; C1750; C1751; C1769; J0360; J1644; J2001; J2250; J2543; J3370; J7030; J7040; J7050

== ENCOUNTER 2017-09-02 11:54 | Emergency (ER) | payer MEDICARE ==
[~2017-09-02] VITALS: Ht 152.4 cm; Wt 68.0 kg
[~2017-09-02 11:54] MED LIST: ASPIR 8181 MG PO; CARVEDILOL3.125 MG PO; DULCOLAX10 MG PO; FAMOTIDINE20 MG PO; GERI-TUSSI100 MG/5 M PO; HYDRALAZINE HC100 MG PO; HYDRALAZINE HCL25 MG PO; IBUPROFEN400 MG PO; ISOSORBIDE DINI20 MG PO; LEVAQUIN500 MG PO; MINOCYCLINE HCL50 MG PO; PLAVIX75 MG PO; PRAVASTATIN SOD20 MG PO; RENA-VITE TABL0.8 MG PO; RENVELA0.8 GM PO; ZOLOFT50 MG PO
--- OUTSIDE RECORDS SUMMARY | 2017-09-02 11:57 | XMS REPORT | Continuity of Care Document ---
Author Author [facility] Organization [facility] Address [address] [place] [address] Phone Unavailable Care Team Providers [facility] Manager Name Role Phone JULES WEBB (ANEESH) PCP Unavailable Insurance Providers Guarantor Sosa Ness Address [address] [address] Email PT DECLINED Payer [employer] Policy Number [id number] Subscriber's Name Sosa Ness Relationship 18 Self / Same As Patient Effective Date 17 Advance Directives Directive Response Recorded Date/Time Does the patient have an advance directive? No 08/18/17 11:43pm If yes, is advance directive on file with [facility]? No 08/18/17 6:17pm If not on file with [facility] will patient provide a copy? No 08/18/17 6:17pm Do you have a Directive to Physician? No 08/18/17 6:17pm Do you have a Medical Power of Grades 9 Thru 12 Visiting Teacher? No 08/18/17 6:17pm Do you have an out of hospital Do Not Resuscitate Order? No 08/18/17 6:17pm Do you have any special needs we should be aware of? No 08/18/17 6:17pm Do you have a support person here with you today? Yes 08/18/17 6:17pm Did patient receive Notice of Privacy Practices? Yes 08/18/17 6:17pm Did patient receive patient rights and responsibilities? Yes 08/18/17 6:17pm Problems Medical Problem Onset Date Status Dialysis AV fistula infection Unknown ESRD on dialysis Unknown Medications Current Home Medications Medication Dose Units Route Directions Days Qty Instructions Start Date Aspirin (Aspir 81) 81 Mg Tablet.dr 81 Mg Oral Daily Bisacodyl (Dulcolax) 10 Mg Supp.rect 10 Mg Oral Daily Carvedilol 3.125 Mg Tablet 3.125 Mg Oral Twice A Day 60 Tab Clopidogrel Bisulfate (Plavix) 75 Mg Tablet 75 Mg Oral Daily 30 Tab Famotidine 20 Mg Tab 20 Mg Oral Twice Daily Before Meals 30 Days Folic Acid/Vitamin B Comp W-C (Martha-Kerry Tablet) 0.8 Mg Tablet 0.8 Mg Oral Daily Guaifenesin (Gaiv-Tussin) 100 Mg/5 Ml Liquid 100 Mg Oral Every 6 Hours Hydralazine Hcl 25 Mg Tab 100 Mg Oral Three Times A Day Hydralazine Hcl 100 Mg Tablet 100 Mg Oral Three Times A Day 30 Days 08/23/17 Ibuprofen 400 Mg Tablet 400 Mg Oral Three Times A Day Isosorbide Dinitrate 20 Mg Tablet 10 Mg Oral Three Times A Day 30 Days 08/25/17 Levofloxacin (Levaquin) 500 Mg Tablet 500 Mg Oral Every 48 Hours 3 08/23/17 Minocycline Hcl 50 Mg Capsule 100 Mg Oral Twice A Day 7 Days 14 Tab TAKE WITH FOOD TO AVOID STOMACH UPSET. DO NOT TAKE ANTACID, MILK, MINERALS, AND MULTIVITAMIS WITHIN 3 HOURS OF THIS MEDICATION 08/23/17 Pravastatin Sodium 20 Mg Tablet 20 Mg Oral Bedtime Sertraline Hcl (Zoloft) 50 Mg Tablet 75 Mg Oral Daily 30 Tab Sevelamer Carbonate (Renvela) 0.8 Gm Powd.pack 1 Tab Oral Use As Directed Social History Social History Problem Response Recorded Date/Time Onset Date Status Hx Psychiatric Problems No 08/18/2017 11:43pm Not Applicable Not Applicable Hx Eating Disorder No 08/18/2017 11:43pm Not Applicable Not Applicable Hx Substance Use Disorder No 08/18/2017 11:43pm Not Applicable Not Applicable Hx Depression No 08/18/2017 11:43pm Not Applicable Not Applicable Hx Alcohol Use No 08/18/2017 11:43pm Not Applicable Not Applicable Hx Substance Use Treatment No 08/18/2017 11:43pm Not Applicable Not Applicable Hx Physical Abuse No 08/18/2017 11:43pm Not Applicable Not Applicable Smoking Status Start Date Stop Date Never Smoker Hospital Discharge Instructions No hospital discharge instruction information available. Plan of Care Discharge Date 08/25/17 3:30pm Disposition TRANSFER CARE HOME Prescriptions See Medication Section Referrals pcp (Internal Medicine) Order Date: 5-7 Days Entered Date: 08/23/2017 7:18am your case checker (Nephrology) Order Date: 3 Days Entered Date: 08/23/2017 7:18am Functional Status Query Response Date Recorded Assistive Devices None August 18, 2017 11:54pm Ambulation Ability 1 person assist August 18, 2017 11:54pm Toileting Ability Minimum Assistance August 19, 2017 12:00pm Allergies, Adverse Reactions, Alerts No known allergies. Immunizations No immunization information available. Vital Signs Acute Vital Signs Vital Response Date/Time Temperature (Fahrenheit) 97.0 degrees F (97.6 - 99.5) 08/25/2017 12:02pm Pulse Pulse Rate (adult) 58 bpm (60 - 90) 08/25/2017 12:02pm Respiratory Rate 18 bpm (12 - 24) 08/25/2017 12:02pm Blood Pressure 126/50 mm Hg 08/25/2017 12:02pm Height 5 ft 0 in 08/18/2017 10:30pm Weight 146.06 lb 08/19/2017 1:04am Body Mass Index 28.5 kg/m^2 08/19/2017 1:04am Results Laboratory Results Test Name Result Units Flags Reference Collection Date/Time Result Date/ Time Comments White Blood Count 5.01 x10e3/uL 4.8-10.8 08/25/2017 6:37am 08/25/2017 7 :00am Red Blood Count 3.28 x10e6/uL L 3.6-5.1 08/25/2017 6:37am 08/25/2017 7: 00am Hemoglobin 10.8 g/dL L 12.0-16.0 08/25/2017 6:37am 08/25/2017 7:00am Hematocrit 32.5 % L 34.2-44.1 08/25/2017 6:37am 08/25/2017 7:00am Mean Corpuscular Volume 99.1 fL H 81-99 08/25/2017 6:37am 08/25/2017 7: 00am Mean Corpuscular Hemoglobin 32.9 pg H 28-32 08/25/2017 6:37am 2017 7:00am Mean Corpuscular Hemoglobin Concent 33.2 g/dL 31-35 08/25/2017 6:37am 08/25/2017 7:00am Red Cell Distribution Width 13.6 % 11.7-14.4 08/25/2017 6:37am 2017 7:00am Platelet Count 143 x10e3/uL 140-360 08/25/2017 6:37am 08/25/2017 7: 00am Neutrophils (%) (Auto) 59.6 % 38.7-80.0 08/25/2017 6:37am 08/25/2017 7: 00am Lymphocytes (%) (Auto) 19.4 % 18.0-39.1 08/25/2017 6:37am 08/25/2017 7: 00am Monocytes (%) (Auto) 18.6 % H 4.4-11.3 08/25/2017 6:37am 08/25/2017 7: 00am Eosinophils (%) (Auto) 1.2 % 0.0-6.0 08/25/2017 6:37am 08/25/2017 7: 00am Basophils (%) (Auto) 0.8 % 0.0-1.0 08/25/2017 6:37am 08/25/2017 7:00am IM GRANULOCYTES % 0.4 % 0.0-1.0 08/25/2017 6:37am 08/25/2017 7:00am Neutrophils # (Auto) 3.0 2.1-6.9 08/25/2017 6:37am 08/25/2017 7:00am Lymphocytes # (Auto) 1.0 1.0-3.2 08/25/2017 6:37am 08/25/2017 7:00am Monocytes # (Auto) 0.9 H 0.2-0.8 08/25/2017 6:37am 08/25/2017 7:00am Eosinophils # (Auto) 0.1 0.0-0.4 08/25/2017 6:37am 08/25/2017 7:00am Basophils # (Auto) 0.0 0.0-0.1 08/25/2017 6:37am 08/25/2017 7:00am Absolute Immature Granulocyte (auto 0.02 x10e3/uL 0-0.1 08/25/2017 6: 37am 08/25/2017 7:00am Prothrombin Time 14.1 seconds 11.9-14.5 08/18/2017 6:30pm 08/18/2017 6: 58pm Prothromb Time International Ratio 1.18 08/18/2017 6:30pm 2017 6:58pm Oral Anticoagulant Therapy INR Values: 1. Low Intensity Therapy 1.5 - 2.0 2. Moderate Intensity Therapy 2.0 - 3.0 3. High Intensity Therapy(1) 2.5 - 3.5 4. High Intensity Therapy(2) 3.0 - 4.0 5. Panic Value INR > 5.0 Activated Partial Thromboplast Time 32.0 seconds 23.8-35.5 08/18/2017 6: 30pm 08/18/2017 6:58pm Sodium Level 138 mmol/L 136-145 08/25/2017 6:37am 08/25/2017 7:47am Potassium Level 5.9 mmol/L H 3.5-5.1 08/25/2017 6:37am 08/25/2017 7: 47am Chloride Level 98 mmol/L 98-107 08/25/2017 6:37am 08/25/2017 7:47am Carbon Dioxide Level 25 mmol/L 22-29 08/25/2017 6:37am 08/25/2017 7: 47am Anion Gap 20.9 mmol/L H 8-16 08/25/2017 6:37am 08/25/2017 7:47am Blood Urea Nitrogen 53 mg/dL H 7-26 08/25/2017 6:37am 08/25/2017 7:34am Creatinine 6.33 mg/dL H 0.57-1.11 08/25/2017 6:37am 08/25/2017 7:34am BUN/Creatinine Ratio 8 6-25 08/25/2017 6:37am 08/25/2017 7:34am Estimat Glomerular Filtration Rate 6 ML/MIN L 60- 08/25/2017 6:37am 12/2017 7:34am Ranges were taken from the National Kidney Disease Education Program and the National Kidney Foundation literature. Reference ranges: 60 or greater: Normal 16-59 (for 3 consecutive months): Chronic kidney disease 15 or less: Kidney failure Glucose Level 108 mg/dL 74-118 08/25/2017 6:37am 08/25/2017 7:34am Calcium Level 10.3 mg/dL H 8.4-10.2 08/25/2017 6:37am 08/25/2017 7:34am Phosphorus Level 7.3 MG/DL H 2.3-4.7 08/23/2017 6:32am 08/23/2017 7: 55am Magnesium Level 1.8 MG/DL 1.3-2.1 08/20/2017 6:26am 08/20/2017 7:30am Total Bilirubin 0.8 mg/dL 0.2-1.2 08/19/2017 5:59am 08/19/2017 6:47am Aspartate Amino Transf (AST/SGOT) 27 IU/L 5-34 08/19/2017 5:59am 2017 6:47am Alanine Aminotransferase (ALT/SGPT) 21 IU/L 0-55 08/19/2017 5:59am 06/2017 6:47am Total Protein 6.8 g/dL 6.5-8.1 08/19/2017 5:59am 08/19/2017 6:47am Albumin 3.5 g/dL 3.5-5.0 08/19/2017 5:59am 08/19/2017 6:47am Globulin 3.3 g/dL 2.3-3.5 08/19/2017 5:59am 08/19/2017 6:47am Albumin/Globulin Ratio 1.1 0.8-2.0 08/19/2017 5:59am 08/19/2017 6: 47am Alkaline Phosphatase 92 IU/L 40-150 08/19/2017 5:59am 08/19/2017 6: 47am B-Type Natriuretic Peptide 1535.8 pg/mL H 0-100 08/18/2017 6:00pm 2017 6:36pm Creatine Kinase 28 IU/L L 29-168 08/18/2017 6:30pm 08/18/2017 7:17pm Creatine Kinase MB 1.60 ng/mL 0-5.0 08/18/2017 6:30pm 08/18/2017 7: 17pm Troponin I 0.064 ng/mL 0-0.300 08/18/2017 6:30pm 08/18/2017 7:17pm Hepatitis B Surface Antigen Negative Negative 08/19/2017 4:00pm 08/20 5:44am Performed at: - [facility] [id number] Wire Puller: Christian Williamson MD, Phone: [phone] Microbiology Results Procedure Source Organism/Result Collection Date/Time Result Date/Time Result Status Blood Culture Blood NO GROWTH AFTER 5 DAYS, FINAL REPORT 08/18/2017 6:00pm 08/23/2017 6:13pm Final [place] [id number] Patient Name: SOSA NESS MR # :[id number] : 1930 Age/Sex: 87/F Admit Physician: MARTINE MONTEZ MD Admit Date: 08/18/17 Location/Room/Bed: [place] [address]- 299-1 Discharge Date: Report: Discharge Summary PRINCIPAL DIAGNOSES 1. Infected arteriovenous fistula site. 2. End-stage renal disease on hemodialysis. 3. Hypertension. 4. Anxiety/depression. 5. Overweight state. Body mass index 28.6. 6. Right femoral head collapse/erosion, but no fracture. SECONDARY DIAGNOSIS: End-stage renal disease on hemodialysis. CHIEF COMPLAINT: Redness around the hemodialysis access site. HISTORY OF PRESENT ILLNESS: This is an 87-year-old woman developing presumed infection at the AV fistula site. Please refer to the H and P for further details. HOSPITAL COURSE: The patient received IV antibiotics for infection at the AV fistula site. Continued to receive dialysis after a temporary catheter was placed in the right chest. She had hypertension and anxiety disorder treated with medication regimen. She had a right femoral head collapse/erosion, but no fracture. Will need continued physical therapy at home. The patient has received IV Zosyn and IV vancomycin. Will defer to infectious disease regarding choice of antibiotics for home use. She is currently appropriate for discharge with followup. DISCHARGE MEDICATIONS: Per electronic medical record. FOLLOWUP: With primary care doctor in 1 week. Also follow up with case checker as directed. CONDITION ON DISCHARGE: Stable and improving. DISCHARGE LOCATION: Home with physical therapy. MARTINE MONTEZ MD Job#: [id number] MH Dictated By: MARTINE MONTEZ MD Transcribed By: [facility] on 08/23/17 <Electronically signed by MARTINE MONTEZ MD>08/23/17 1705 Procedures Procedure Status Date Provider(s) X-ray of chest, single view Active 08/18/17 SISSY PLEITEZ EXPLOSIVE ORDNANCE TECHNICIAN Encounters Encounter Location Arrival/Admit Date Discharge/Depart Date Attending Provider Discharged Inpatient [facility] 08/18/17 9:28pm 08/25/17 3:30pm MARTINE MONTEZ MD
[2017-09-02] MEDS ORDERED: ASPIRIN 81 MG CHEW TAB PO ONE (12:00)
--- NOTE | 2017-09-02 13:05 | Diagnostic Imaging Report ---
PROCEDURE:HIP RIGHT 2-3 VW (+/- PELVIS) TECHNIQUE:AP pelvis with AP and oblique views right hip INDICATION:Pain status post fall COMPARISON:None. FINDINGS: Complete erosion of the femoral head with complete loss of joint space and marginal erosions of the acetabulum and remaining femoral neck. Regional skeleton intact. Severe regional arteriosclerosis. CONCLUSION: Severe osseous erosion of the right femoral head. Findings in keeping with rheumatoid arthritis. No evidence of acute traumatic injury. Dictated by: Lalo Banegas M.D. on 09/02/2017 at 13:05 Electronically approved by: Lalo Banegas M.D. on 09/02/2017 at 13:05
--- NOTE | 2017-09-02 13:09 | Diagnostic Imaging Report ---
PROCEDURE:CHEST SINGLE (NOT PORTABLE) TECHNIQUE:Portable AP chest INDICATION:Fall COMPARISON:None. FINDINGS: Right internal jugular tunnel dialysis catheter tips at the high right atrium. Mild bilateral interstitial opacity, central vascular congestion and cardiomegaly. Left axillary and cephalic vein stents. Intact skeleton. CONCLUSION: Cardiomegaly with mild pulmonary edema. Dictated by: Lalo Banegas M.D. on 09/02/2017 at 13:08 Electronically approved by: Lalo Banegas M.D. on 09/02/2017 at 13:08
--- NOTE | 2017-09-02 13:42 | Diagnostic Imaging Report ---
Exams: Head and cervical spine CTs without IV contrast History: Trauma, fall Comparison studies: None Technique: Axial images were obtained from the brain and cervical spine. Coronal and sagittal images reconstructed from the axial data. Intravenous contrast: None Findings: Head CT: Scalp: No acute abnormal allergies. Bones: No fractures or lytic or blastic lesions. There is mild nonspecific chronic osseous resection along the bilateral posterior parietal calvarium. Extra-axial spaces: No masses. No fluid collections. Brain sulci: Moderately prominent Ventricles: Mild to moderate compensatory dilatation. No hydrocephalus. Parenchyma: No mass, acute hemorrhage or acute cortical vascular insults there are chronic insults in the right cerebellum. Hypodensities in the supratentorial white matter are nonspecific but most compatible with chronic small vessel ischemic changes. Subtle hypodensity within the right burgess radiata which extends to the subcortical right inferior frontal gyrus may reflect chronic ischemic insult though age is indeterminate by CT. Sellar/suprasellar region: No abnormalities. Craniocervical junction: The foramen magnum is patent. No Chiari one malformation. Incidental findings: Atherosclerotic calcifications in the carotid siphons and intradural vertebral arteries. Partially opacified most posterior right ethmoid air cell. Cervical spine CT: Fractures: None. Soft tissues: No gross acute abnormalities. There is a 3.5 cm circumscribed lesion in the right inferior dorsal cervical soft tissues at the C5 vertebral level which appears to contain small foci of gas density. Atlantoaxial articulation: Intact. Alignment: Cervical kyphosis centered at C5-C6. Mild anterolisthesis of C3 on C4 and C4 on C5 and mild retrolisthesis of C5 on C6 are most likely degenerative in etiology. Cervicomedullary junction: No abnormalities. The foramen magnum is patent. Vertebrae: No infection. Demineralized bones with a few scattered lytic foci throughout the which are nonspecific. Though benign lesion such as hemangiomas could have this appearance, differential would include metastasis or myeloma. Degenerative changes: Moderate degenerative changes at the atlantodental joint. Degenerated disks from C2 to T2, worse/moderate at C5-C6. Moderate canal stenosis at C5-C6 due to a disc osteophyte complex. Multilevel foraminal stenosis due to uncovertebral facet arthrosis (mild bilaterally at C3-C4. Moderate right and mild left C4-C5, moderate bilaterally at C5-C6 and moderate bilaterally at C6-C7. 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 Partially imaged dual-lumen central venous catheter in the right neck and left subclavian stent which cannot be further evaluated on this exam. IMPRESSION: Head CT: 1. No acute post traumatic abnormalities. 2. Small age-indeterminate right frontal insult. 3. Moderate generalized volume loss. 4. Mild chronic small vessel ischemic changes with chronic right cerebellar insult. Cervical spine CT: 1. No cervical spine fracture or acute subluxation. 2. Degenerative changes as described. 3. Demineralized bones with a few scattered nonspecific, nonaggressive-appearing lytic lesions for which metastases or myeloma cannot be excluded. 4. Circumscribed soft tissue mass in the right dorsal cervical soft tissues which can be correlated with direct visualization. 5. Cannot adequately evaluate ligament, spinal cord and or vascular abnormalities on the basis of this examination. Signed by: Dr. Tavon Gandhi M.D. on 09/02/2017 1:38 PM
[2017-09-02 14:17] LABS: BASOPHILS % 0.4 % (0.0-1.0); EOSINOPHILS # (AUTO) 0.1 (0.0-0.4); EOSINOPHILS % 1.4 % (0.0-6.0); HEMATOCRIT 33.5 % (34.2-44.1); LYMPHOCYTES # (AUTO) 0.9 (1.0-3.2); LYMPHOCYTES % 12.3 % (18.0-39.1); MEAN CORPUSCULAR HEMOGLOBIN 32.7 pg (28-32); MEAN CORPUSCULAR HGB CONC 32.8 g/dL (31-35); MEAN CORPUSCULAR VOLUME 99.7 fL (81-99); MONOCYTES # (AUTO) 0.7 (0.2-0.8); MONOCYTES % 9.5 % (4.4-11.3); NEUTROPHILS # (AUTO) 5.3 (2.1-6.9); PLATELET COUNT 199 x10e3/uL (140-360); RED BLOOD COUNT 3.36 x10e6/uL (3.6-5.1); RED CELL DISTRIBUTION WIDTH 13.7 % (11.7-14.4)
[2017-09-02 14:25] LABS: INR 1.1; PROTHROMBIN TIME 13.4 seconds (11.9-14.5)
[2017-09-02 14:26] LABS: PARTIAL THROMBOPLASTIN TIME 37.7 seconds (23.8-35.5)
[2017-09-02 14:32] LABS: ALBUMIN/GLOBULIN RATIO 1.1 (0.8-2.0); ANION GAP 16.7 mmol/L (8-16); CALCIUM 9.8 mg/dL (8.4-10.2); CREATININE, SERUM 4.37 mg/dL (0.57-1.11); POTASSIUM 4.7 mmol/L (3.5-5.1)
[2017-09-02 14:52] LABS: CREATINE KINASE MB 1.5 ng/mL (0-5.0); THYROID STIMULATING HORMONE 4.65 uIU/mL (0.350-4.940)
[2017-09-02] MEDS ORDERED: SODIUM CHLORIDE 0.9% 1000ML 500 ML IV STA (16:27)
[2017-09-02 16:31] VITALS: BP 167/59
== END 2017-09-02 16:45 | disposition home or self-care (01) ==
LOC: ER 11:54
DX: S00.83XA Contusion of other part of head, initial encounter (principal); M25.551 Pain in right hip; W07.XXXA Fall from chair, initial encounter; Y92.128 Other place in nursing home as the place of occurrence of the external cause; F03.90 Unspecified dementia, unspecified severity, without behavioral disturbance, psychotic disturbance, mood disturbance, and anxiety; I12.0 Hypertensive chronic kidney disease with stage 5 chronic kidney disease or end stage renal disease; N18.6 End stage renal disease; Z99.2 Dependence on renal dialysis; I25.10 Atherosclerotic heart disease of native coronary artery without angina pectoris; I25.2 Old myocardial infarction
CPT/HCPCS: 36415; 70450; 71045; 72125; 80053; 82550; 82553; 83880; 84443; 84484; 85025; 85610; 85730; 93005; 99284

== ENCOUNTER → 2017-10-05 | Outpatient (CLI) | payer MEDICARE, OTHER ==
[~2017-10-05] MED LIST changes: +AMLODIPINE BESYL5 MG PO; +NORCO 5-325 TA1 EACH PO; +SODIUM CHLORIDE 0.9% 500ML 500 ML ONE; +TYLENOL; +ULTRAM50 MG PO
--- OUTSIDE RECORDS SUMMARY | 2017-10-05 10:54 | XMS REPORT | Continuity of Care Document ---
Author Author [facility] Organization [facility] Address [address] [place] [address] Phone Unavailable Care Team Providers Care Press Tender Star Signal Name Role Phone JULES WEBB (ANEESH) PCP Unavailable Insurance Providers Guarantor Sosa Ness Address [address] [address] Email PT DECLINED Payer [employer] Policy Number [id number] Subscriber's Name Sosa Ness Relationship 18 Self / Same As Patient Effective Date 17 Advance Directives Directive Response Recorded Date/Time Does the patient have an advance directive? No 08/18/17 11:43pm If yes, is advance directive on file with [facility]? No 08/18/17 6:17pm If not on file with [facility] will patient provide a copy? No 08/18/17 6:17pm Do you have a Directive to Physician? No 09/02/17 1:13pm Do you have a Medical Power of Crime Laboratory Analyst? No 09/02/17 1:13pm Do you have an out of hospital Do Not Resuscitate Order? No 09/02/17 1:13pm Do you have any special needs we should be aware of? No 09/02/17 1:13pm Do you have a support person here with you today? Yes 09/02/17 1:13pm Did patient receive Notice of Privacy Practices? Yes 09/02/17 1:13pm Did patient receive patient rights and responsibilities? Yes 09/02/17 1:13pm Problems Medical Problem Onset Date Status Dialysis [...] Mg Tablet 0.8 Mg Oral Daily Guaifenesin (Gavi-Tussin) 100 Mg/5 Ml Liquid 100 Mg Oral [...] Applicable Smoking Status Start Date Stop Date Unknown if ever smoked Hospital Discharge Instructions No hospital discharge instruction information available. Plan of Care Discharge Date 09/02/17 4:45pm Disposition HOME, SELF-CARE Condition at Discharge Stable Instructions/Education Provided Concussion/Head Injury - Adult Forms Provided Work/School Excuse Prescriptions See Medication Section Referrals JULES WEBB MD (NS) Address: [address] [place] [id number] Additional Instructions/Education 1. FOLLOW UP WITH YOUR DOCTRO IN 1-2 DAYS WITHOUT FAIL 2. RETURN TO ED NEEDED Functional Status No functional status information available. Allergies, Adverse Reactions, Alerts No known allergies. Immunizations No immunization information available. Vital Signs Acute Vital Signs Vital Response Date/Time Temperature (Fahrenheit) 97.0 degrees F (97.6 - 99.5) 08/25/2017 12:02pm Pulse Pulse Rate (adult) 65 bpm (60 - 90) 09/02/2017 4:31pm Respiratory Rate 18 bpm (12 - 24) 09/02/2017 4:31pm Blood Pressure 167/59 mm Hg 09/02/2017 4:31pm Height 5 ft 0 in 09/02/2017 12:00pm Weight 150 lb 09/02/2017 12:00pm Body Mass Index 29.3 kg/m^2 09/02/2017 12:00pm Results Laboratory Results Test Name Result Units Flags Reference Collection Date/Time Result Date/ Time Comments Phosphorus Level 7.3 MG/DL H 2.3-4.7 08/23/2017 6:32am 08/23/2017 7: 55am Magnesium Level 1.8 MG/DL 1.3-2.1 08/20/2017 6:26am 08/20/2017 7:30am B-Type Natriuretic Peptide 1535.8 pg/mL H 0-100 08/18/2017 6:00pm 2017 6:36pm Hepatitis B Surface Antigen Negative Negative 08/19/2017 4:00pm 08/20 5:44am Performed at: - [facility] [address] [id number] Early Morning Babysitter: Christian Williamson MD, Phone: [phone] White Blood Count 6.92 x10e3/uL 4.8-10.8 09/02/2017 1:09/02/2017 2 :18pm Red Blood Count 3.36 x10e6/uL L 3.6-5.1 09/02/2017 1:09/02/2017 2: 18pm Hemoglobin 11.0 g/dL L 12.0-16.0 09/02/2017 1:09/02/2017 2:18pm Hematocrit 33.5 % L 34.2-44.1 09/02/2017 1:09/02/2017 2:18pm Mean Corpuscular Volume 99.7 fL H 81-99 09/02/2017 1:09/02/2017 2: 18pm Mean Corpuscular Hemoglobin 32.7 pg H 28-32 09/02/2017 1:2017 2:18pm Mean Corpuscular Hemoglobin Concent 32.8 g/dL 31-35 09/02/2017 1:09/02/2017 2:18pm Red Cell Distribution Width 13.7 % 11.7-14.4 09/02/2017 1:2017 2:18pm Platelet Count 199 x10e3/uL 140-360 09/02/2017 1:09/02/2017 2: 18pm Neutrophils (%) (Auto) 76.0 % 38.7-80.0 09/02/2017 1:09/02/2017 2: 18pm Lymphocytes (%) (Auto) 12.3 % L 18.0-39.1 09/02/2017 1:09/02/2017 2 :18pm Monocytes (%) (Auto) 9.5 % 4.4-11.3 09/02/2017 1:09/02/2017 2: 18pm Eosinophils (%) (Auto) 1.4 % 0.0-6.0 09/02/2017 1:09/02/2017 2: 18pm Basophils (%) (Auto) 0.4 % 0.0-1.0 09/02/2017 1:09/02/2017 2:18pm IM GRANULOCYTES % 0.4 % 0.0-1.0 09/02/2017 1:09/02/2017 2:18pm Neutrophils # (Auto) 5.3 2.1-6.9 09/02/2017 1:09/02/2017 2:18pm Lymphocytes # (Auto) 0.9 L 1.0-3.2 09/02/2017 1:09/02/2017 2: 18pm Monocytes # (Auto) 0.7 0.2-0.8 09/02/2017 1:09/02/2017 2:18pm Eosinophils # (Auto) 0.1 0.0-0.4 09/02/2017 1:09/02/2017 2:18pm Basophils # (Auto) 0.0 0.0-0.1 09/02/2017 1:09/02/2017 2:18pm Absolute Immature Granulocyte (auto 0.03 x10e3/uL 0-0.1 09/02/2017 1: 09/02/2017 2:18pm Prothrombin Time 13.4 seconds 11.9-14.5 09/02/2017 1:09/02/2017 2: 26pm Prothromb Time International Ratio 1.10 09/02/2017 1:2017 2:26pm Oral Anticoagulant Therapy INR Values: 1. Low Intensity Therapy 1.5 - 2.0 2. Moderate Intensity Therapy 2.0 - 3.0 3. High Intensity Therapy(1) 2.5 - 3.5 4. High Intensity Therapy(2) 3.0 - 4.0 5. Panic Value INR > 5.0 Activated Partial Thromboplast Time 37.7 seconds H 23.8-35.5 09/02/2017 1 :09/02/2017 2:26pm Sodium Level 138 mmol/L 136-145 09/02/2017 1:09/02/2017 2:36pm Potassium Level 4.7 mmol/L 3.5-5.1 09/02/2017 1:09/02/2017 2:36pm Chloride Level 95 mmol/L L 98-107 09/02/2017 1:09/02/2017 2:36pm Carbon Dioxide Level 31 mmol/L H 22-29 09/02/2017 1:09/02/2017 2: 36pm Anion Gap 16.7 mmol/L H 8-16 09/02/2017 1:09/02/2017 2:36pm Blood Urea Nitrogen 24 mg/dL 7-26 09/02/2017 1:09/02/2017 2:36pm Creatinine 4.37 mg/dL H 0.57-1.11 09/02/2017 1:09/02/2017 2:36pm BUN/Creatinine Ratio 5 L 6-25 09/02/2017 1:09/02/2017 2:36pm Estimat Glomerular Filtration Rate 10 ML/MIN L 60- 09/02/2017 1: 2:36pm Ranges were taken from the National Kidney Disease Education Program and the National Kid[employer] Foundation literature. Reference ranges: 60 or greater: Normal 16-59 (for 3 consecutive months): Chronic kidney disease 15 or less: Kidney failure Glucose Level 93 mg/dL 74-118 09/02/2017 1:09/02/2017 2:36pm Calcium Level 9.8 mg/dL 8.4-10.2 09/02/2017 1:09/02/2017 2:36pm Total Bilirubin 1.2 mg/dL 0.2-1.2 09/02/2017 1:09/02/2017 2:36pm Aspartate Amino Transf (AST/SGOT) 28 IU/L 5-34 09/02/2017 1:2017 2:36pm Alanine Aminotransferase (ALT/SGPT) 24 IU/L 0-55 09/02/2017 1: 2:36pm Total Protein 7.5 g/dL 6.5-8.1 09/02/2017 1:09/02/2017 2:36pm Albumin 4.0 g/dL 3.5-5.0 09/02/2017 1:09/02/2017 2:36pm Globulin 3.5 g/dL 2.3-3.5 09/02/2017 1:09/02/2017 2:36pm Albumin/Globulin Ratio 1.1 0.8-2.0 09/02/2017 1:09/02/2017 2: 36pm Alkaline Phosphatase 96 IU/L 40-150 09/02/2017 1:09/02/2017 2: 36pm Creatine Kinase 36 IU/L 29-168 09/02/2017 1:25pm 09/02/2017 2:36pm Creatine Kinase MB 1.50 ng/mL 0-5.0 09/02/2017 1:25pm 09/02/2017 2: 56pm Troponin I 0.059 ng/mL 0-0.300 09/02/2017 1:25pm 09/02/2017 2:56pm Thyroid Stimulating Hormone (TSH) 4.650 uIU/mL 0.350-4.940 09/02/2017 1: 25pm 09/02/2017 2:56pm Microbiology Results Procedure Source Organism/Result Collection Date/Time Result Date/Time Result Status Blood Culture Blood NO GROWTH AFTER 5 DAYS, FINAL REPORT 08/18/2017 6:00pm 08/23/2017 6:13pm Final Procedures Procedure Status Date Provider(s) X-ray of chest, single view Active 08/18/17 SISSY PLEITEZ ENHANCED ENVIRONMENTAL OPERATOR Computed tomography of brain without radiopaque contrast Active 09/02/17 SISSY PLEITEZ ENHANCED ENVIRONMENTAL OPERATOR Computed tomography of cervical spine without contrast Active 09/02/17 SISSY PLEITEZ ENHANCED ENVIRONMENTAL OPERATOR X-ray of chest, single view Active 09/02/17 SISSY PLEITEZ ENHANCED ENVIRONMENTAL OPERATOR Encounters Encounter Location Arrival/Admit Date Discharge/Depart Date Attending Provider Departed Emergency Room [facility] 09/02/17 11:54am 09/02 4:45pm BRETT MAYS Discharged Inpatient [facility] 08/18/17 9:28pm 08/25/17 3:30pm MARTINE MONTEZ MD
== END | disposition home or self-care (01) ==
LOC: LAB 10:52 → OR 10:52 → EDSTATUS 13:00
PROVIDERS: ATTEND Internal Medicine Gastroenterology
DX: Z12.11 Encounter for screening for malignant neoplasm of colon (principal); Z53.09 Procedure and treatment not carried out because of other contraindication
CPT/HCPCS: 36415; 82948; J7040

== ENCOUNTER → 2017-10-21 | Day surgery (SDC) | payer MEDICARE, OTHER ==
[~2017-10-21] MED LIST changes: +GLUCAGON FOR INJ 1 MG VIAL ONE; +LIDOCAINE HCL 2% LOCAL INJ 5 ML SDV VIAL INJ ONE; +PROPOFOL IV EMULSION 10 MG/ML 50 ML VIAL ONE
[2017-10-21 08:57] LABS: BASOPHILS % 0.5 % (0.0-1.0); EOSINOPHILS % 0.7 % (0.0-6.0); HEMATOCRIT 35.8 % (34.2-44.1); HEMOGLOBIN 11.4 g/dL (12.0-16.0); LYMPHOCYTES % 16.7 % (18.0-39.1); MEAN CORPUSCULAR HEMOGLOBIN 30.3 pg (28-32); MEAN CORPUSCULAR HGB CONC 31.8 g/dL (31-35); MEAN CORPUSCULAR VOLUME 95.2 fL (81-99); MONOCYTES # (AUTO) 0.8 (0.2-0.8); MONOCYTES % 13.6 % (4.4-11.3); NEUTROPHILS # (AUTO) 4.2 (2.1-6.9); NEUTROPHILS % 68.2 % (38.7-80.0); PLATELET COUNT 206 x10e3/uL (140-360); RED BLOOD COUNT 3.76 x10e6/uL (3.6-5.1); RED CELL DISTRIBUTION WIDTH 14.8 % (11.7-14.4)
--- NOTE | 2017-10-21 14:09 | Operative Report ---
DATE OF PROCEDURE: October 21, 2017 REFERRING PHYSICIANS: Dr. Yobany Orr and Dr. Tavon Galindo. PROCEDURE PERFORMED: Colonoscopy and polypectomy. INDICATIONS FOR COLONOSCOPY: Patient is status post colon resection and colostomy. She is in for a clearance colonoscopy prior to colostomy reversal. PROCEDURE: With the patient in the supine position, the flexible fiberoptic Olympus colonoscope was inserted into the colostomy and advanced all the way to the cecum. The mucosa overlying the cecum appeared to be within normal limits. An approximately 2.2-cm sessile lesion was noted at the junction of the cecum and the ascending colon. Its relationship to the ileocecal valve could not be delineated as the cecum was somewhat sharply angulated. Biopsies were obtained and sent for frozen section, which was positive for villous adenoma. The scope was then withdrawn slowly. Mucosa overlying the ascending colon appeared to be within normal limits. In the distal transverse colon, 3 polyps were noted, the largest of which was approximately 1.2 cm, and all 3 were snared. An approximately 6-mm polyp noted just proximal to the stoma was not removed. The patient was then placed in the left lateral decubitus position. The flexible fiberoptic Olympus colonoscope was then inserted into the rectum with ease. Unfortunately, the patient was suboptimally prepped with moderate to large amount of retained fecal material in the rectum, but no obvious obstructing or constricting lesions were noted. After lavage and washings, the colonoscope was advanced to possibly 20 cm from the anal verge, and there was some minimal diverticulosis, but there was no evidence of any obstructive or constrictive lesions. The scope was then retroflexed into the distal rectum, and small internal hemorrhoids were noted, none of which was actively bleeding. The scope was then straightened out. It was subsequently withdrawn. Patient tolerated the procedure well. IMPRESSION 1. Approximately 2.2-cm sessile mass at junction of cecum and ascending colon, could not delineate relationship to the ileocecal valve due to sharp angulation of the cecum. Biopsies were obtained and sent for frozen section, which was positive for villous adenoma. 2. Distal transverse colon polyps times 3, the largest up to 1.2 cm in size, removed per snare electrocautery. An approximately 6-mm polyp just proximal to the stoma was not removed. 3. Suboptimal prep involving the rectum and the distal sigmoid, but no obvious obstructing or constricting lesion up to 20 cm from the anal verge. 4. Internal hemorrhoids, none actively bleeding. PLAN: Follow up histology. Patient will need a CT scan of the abdomen and pelvis if none has been done recently. Findings were discussed with the patient's family. Job#: [id number] cc:Noelle PETTY MD
== END | disposition home or self-care (01) ==
LOC: OR 08:09
PROVIDERS: ATTEND Internal Medicine Gastroenterology
CPT/HCPCS: 36415; 45378; 45380; 45385; 82948; 84132; 85025; 88305; 88331; J1610; J2001; J7040

== ENCOUNTER → 2017-11-16 | Outpatient (CLI) | payer MEDICARE, OTHER ==
[~2017-11-16] MED LIST changes: +DIATRIZOATE MEGL/DIATRIZOA SOD 30 ML BTL PO ONE; -GLUCAGON FOR INJ 1 MG VIAL ONE; +IOPAMIDOL 370 MG/ML 200 ML INFUS..BTL INJ ONE; -LIDOCAINE HCL 2% LOCAL INJ 5 ML SDV VIAL INJ ONE; -PROPOFOL IV EMULSION 10 MG/ML 50 ML VIAL ONE; -SODIUM CHLORIDE 0.9% 500ML 500 ML ONE; +SODIUM CHLORIDE 0.9% 50ML 50 ML ONE
--- NOTE | 2017-11-16 12:55 | Diagnostic Imaging Report ---
This report includes an Addendum and supersedes previous reports for this exam. PROCEDURE: CT ABDOMEN AND PELVIS WITH CONTRAST TECHNIQUE: The abdomen and pelvis were scanned utilizing a multidetector helical scanner from the diaphragm to the lesser trochanter after the IV administration of 100 cc of Isovue 370 and the oral administration of dilute Gastrografin. Coronal and sagittal multiplanar reformations were obtained. COMPARISON: None. INDICATIONS: ABDOMINAL PAIN FINDINGS: LOWER THORAX: Small right and trace left pleural effusions with associated bilateral lower lobe atelectatic changes, right greater than left. Marked cardiomegaly. Atherosclerotic calcification of the thoracic aorta and coronary arteries. HEPATOBILIARY: Diffusely decreased attenuation of the hepatic parenchyma compared to the spleen, consistent with fatty infiltration. The liver is in the upper limit of normal, measuring 16.2 cm in the right mid clavicular line. Questionable mild nodularity of the hepatic contour. No focal lesions. No biliary ductal dilation. Cholecystectomy clips. SPLEEN: No splenomegaly. PANCREAS: No focal masses or ductal dilatation. Moderate atrophy. ADRENALS: Left adrenal gland is not visualized and may be absent. Right adrenal gland shows mild thickening, without discrete focal lesions. KIDNEYS/URETERS: Markedly atrophic right kidney with marked cortical thinning. Subcentimeter hypodense lesions which are too small to characterize, but likely represent small cysts. No hydronephrosis, stones, or solid masses. Vascular calcifications. The left kidney is absent. PELVIC ORGANS/BLADDER: 0.8 x 0.8 cm rounded intraluminal lesion in the right posterior bladder (series 2, image 74) with apparent homogeneous enhancement. No other focal lesions. Uterus is absent. No adnexal masses. PERITONEUM / RETROPERITONEUM: Trace free fluid in the pelvic cul-de-sac (series 2, image 67). LYMPH NODES: No lymphadenopathy. VESSELS: Marked atherosclerotic calcification of the abdominal aorta and iliac vessels. Celiac trunk, superior and inferior mesenteric, and right renal arteries are patent. Portal, superior mesenteric, and splenic veins are patent. GI TRACT: No bowel dilation or evidence of obstruction. Descending and sigmoid colon diverticulosis, without diverticulitis. Mild amount of retained stool in the colon. BONES AND SOFT TISSUES: Marked generalized osteopenia and mild to moderate multilevel degenerative disc changes in the lumbosacral spine and S-shaped scoliosis. No definite acute, displaced fracture or dislocation. 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 Chronic marked degenerative changes in the right hip joint, with erosion of the right femoral head, marked joint space narrowing and marked d, cystic changes of the right acetabulum. Moderate degenerative changes in the left hip joint. 12.5 x 5.9 x 10.2 cm left anterolateral pelvic wall hernia, which contains fat, and portions of the large and small bowel, which show no wall thickening, abnormal enhancement or evidence of obstruction. No free fluid in the hernia sac. Hernia opening measures approximately 4.5 x 4.8 cm. Calcifications in the right breast (series 2, image 5, and 10) may reflect calcified fibroadenomas. IMPRESSION: 1. No acute abdominopelvic abnormalities. No bowel dilation or evidence of obstruction. 2. Descending and sigmoid colon diverticulosis, without diverticulitis. 3. Small right and trace left pleural effusions with associated bilateral lower lobe atelectasis. 4. Marked cardiomegaly and marked atherosclerotic vascular disease. 5. Diffuse hepatic steatosis. Questionable mild nodularity of the hepatic contour. No focal lesions. 6. Markedly atrophic right kidney. Left kidney is absent. 7. Large wide neck left anterolateral pelvic wall hernia containing fat and portions of the large and small bowel, which are unremarkable, without evidence of incarceration or strangulation. Guillermo Giraldo M.D. Dictated by: Guillermo Giraldo M.D. on 11/16/2017 at 12:58 Electronically approved by: Guillermo Giraldo M.D. on 11/16/2017 At 12:58 ADDENDUM: The following item is added to the Impression: 8. 0.8 cm rounded intraluminal lesion in the right posterior bladder wall, with apparent enhancement, suspicious for TCC. Recommend direct visualization with cystoscopy for further evaluation/tissue diagnosis. Guillermo Giraldo M.D. Dictated by: Guillermo Giraldo M.D. on 11/16/2017 at 20:05 Electronically approved by: Guillermo Giraldo M.D. on 11/16/2017 at 20:05
== END ==
LOC: CT 10:59
PROVIDERS: ATTEND Internal Medicine Gastroenterology
DX: R10.9 Unspecified abdominal pain (principal)
CPT/HCPCS: 74177; Q9967